=== PATIENT | male | born 1980 | race Caucasian/White ===

== ENCOUNTER 2017-01-04 14:09 | Emergency (ER) | payer BC ==
[~2017-01-04] VITALS: Ht 182.9 cm; Wt 101.8 kg
[2017-01-04 14:17] VITALS: TEMP 98.8
[2017-01-04] MEDS ORDERED: ROBAXIN 75750 MG/TAB PO (14:19)
[2017-01-04] MEDS ORDERED: ZESTRIL 10MG10 MG PO (14:19)
[2017-01-04] MEDS ORDERED: AMOXICILLIN 50500 MG PO (14:20)
[2017-01-04] MEDS ORDERED: PRIL40 PO (14:20)
[2017-01-04 14:55] LABS: COLLECTION METHOD CLEAN CATCH
[2017-01-04 15:08] LABS: MUCOUS Present /lpf; PH 6 (5-8); SQUAMOUS EPITHELIAL None Seen /hpf; URINE APPEARANCE Clear; URINE BACTERIA None Seen /hpf; URINE BILIRUBIN Negative (NEGATIVE); URINE BLOOD Negative (NEGATIVE); URINE COLOR Straw; URINE GLUCOSE 2+ (NEGATIVE); URINE KETONE Negative (NEGATIVE); URINE LEUKOCYTE ESTERASE Negative (NEGATIVE); URINE PROTEIN(semi-quant) Negative (NEGATIVE); URINE RBC 0-2 /hpf; URINE UROBILINOGEN Negative (NEGATIVE); URINE WBC 0-2 /hpf
[2017-01-04 15:30] LABS: BASO % 0.3 % (0.0-2.0); EOS # 0.1 (0.0-0.7); EOS % 1.3 % (0-4.0); GRAN # 7.2 (1.4-6.5); GRAN % 78.5 % (42.2-75.2); HEMATOCRIT 46.9 % (42.0-52.0); HEMOGLOBIN 16.2 g/dl (13.5-18.0); LYMPH # 1.4 (1.2-3.4); LYMPH % 15.6 % (20.0-51.0); MEAN CELL VOLUME 87 fl (80.0-100.0); MEAN CORPUSCULAR HEMOGLOBIN 30 pg (27.0-31.0); MEAN CORPUSCULAR HGB CONC 35 g/dl (33.0-37.0); MEAN PLATELET VOLUME 10.3 fl (7.4-10.4); MONO # 0.4 (0.1-0.6); MONO % 4.1 % (1.7-9.3); PLATELET COUNT 273 K/mm3 (130-400); RED BLOOD COUNT 5.38 M/mm3 (4.20-5.60); WHITE BLOOD COUNT 9.2 K/mm3 (4.8-10.8)
[2017-01-04 15:38] LABS: ADJUSTED CALCIUM 9.4 mg/dL (8.4-10.2); ALANINE AMINOTRANSFERASE 28 U/L (21-72); ALBUMIN 4.4 gm/dL (3.5-5.0); ALKALINE PHOSPHATASE 66 U/L (50-136); ANION GAP 13 mmol/L (7-16); BILIRUBIN,TOTAL 0.7 mg/dL (0.0-1.0); BLOOD UREA NITROGEN 10 mg/dL (9-20); CALCIUM 9.7 mg/dL (8.4-10.2); CARBON DIOXIDE 27 mmol/L (22-30); CHLORIDE 101 mmol/L (98-107); CREATININE, serum 0.74 mg/dL (0.66-1.25); GLUCOSE 117 mg/dL (74-106); POTASSIUM 3.6 mmol/L (3.4-5.0); SODIUM 141 mmol/L (137-145); TOTAL PROTEIN 7.7 gm/dL (6.4-8.2)
[2017-01-04 15:50] LABS: TROPONIN-I < 0.012 ng/mL (0.000-0.034)
[2017-01-04] MEDS ORDERED: ANTIVERT 25MG25 MG PO (15:58)
[2017-01-04] MEDS ORDERED: ATIVAN 0.50.5 MG/TAB PO (15:58)
[2017-01-04] MEDS ORDERED: PHENERGAN 25 TA25 MG PO (17:05)
[2017-01-04 17:20] VITALS: BP 136/76; PULSE 74
== END 2017-01-04 17:20 | disposition home or self-care (01) ==
LOC: COL.ER 14:09
PROVIDERS: Emergency Medicine
DX: F41.9 Anxiety disorder, unspecified (principal); R42 Dizziness and giddiness; I10 Essential (primary) hypertension
CPT/HCPCS: J2060; J2550; J7030